=== PATIENT | female | born 1980 | race Two or more races ===

== ENCOUNTER 2024-08-09 23:33 | Emergency (ER) | payer MEDICAID, OTHER ==
[~2024-08-09] VITALS: Ht 170.2 cm; Wt 135.9 kg
[2024-08-09 23:57] LABS: Basophils # (auto) 0 10 ^3/uL (0-0.2); Eosinophils # (auto) 0 10 ^3/uL (0-0.8); Monocytes # (auto) 0.5 10 ^3/uL (0-1.3); Neutrophils # (auto) 6.3 10 ^3/uL (1.6-8.6); White Blood Cell 8.5 10^3/uL (4.4-10.8)
[2024-08-09 23:59] LABS: Basophils % (auto) 0.4 % (0.0-2.0); Eosinophils % (auto) 0.5 % (0.0-7.0); Hematocrit 24.3 % (36.0-46.0); Hemoglobin 7.4 g/dL (12.2-16.2); Lymphocytes # (auto) 1.7 10 ^3/uL (0.4-5.4); Lymphocytes % (auto) 19.7 % (10.0-50.0); Mean Corpuscular Hemoglobin 24.5 pg (28.0-32.0); Mean Corpuscular Hgb Conc. 30.3 g/dL (32.0-36.0); Mean Corpuscular Volume 80.7 fL (80.0-100.0); Monocytes % (auto) 5.7 % (0.0-12.0); Neutrophils % (auto) 73.7 % (37.0-80.0); Platelet Count (auto) 459 10^3/uL (140-450); Red Blood Cells 3.01 10^6/uL (4.0-5.20); Red Cell Distribution Width 24.4 % (11.8-14.3)
[2024-08-10 00:13] LABS: Alanine Aminotransferase 14 U/L (7-40); Albumin 4.2 g/dL (3.2-4.8); Alkaline Phosphatase 82 U/L (46-116); Anion Gap 9 (5-15); BUN/Creatinine Ratio 17.8 (10.0-20.0); Blood Urea Nitrogen 16 mg/dL (9-23); Carbon Dioxide 23 mmol/L (20-31); Potassium 3.8 mmol/L (3.5-5.1); Sodium 141 mmol/L (136-145); Total Protein 6.2 g/dL (5.7-8.2)
[2024-08-10 00:19] LABS: Aspartate Aminotransferase 9 U/L (13-40); Bilirubin, Total 0.2 mg/dL (0.2-1.0); Calcium 8.6 mg/dL (8.7-10.4); Chloride 109 mmol/L (98-107); Glucose 133 mg/dL (74-106)
[2024-08-10 01:00] VITALS: PULSE 73; RESP 14; O2SAT 0
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
[2024-08-10 02:50] VITALS: BP 122/60; PULSE 80; RESP 17; TEMP 98.2
[2024-08-10 03:00] VITALS: BP 110/57; PULSE 70; RESP 17; TEMP 98.1
[2024-08-10 03:15] VITALS: BP 122/59; PULSE 72; RESP 17; TEMP 98.2
[2024-08-10 05:15] VITALS: BP 122/63; PULSE 78; RESP 15; TEMP 98.2
[2024-08-10 05:30] VITALS: BP 118/56; PULSE 81; RESP 17; TEMP 98.1; O2SAT 98
== END 2024-08-10 05:48 | disposition home or self-care (01) ==
LOC: ER 23:33
DX: D50.0 Iron deficiency anemia secondary to blood loss (chronic) (principal); N94.6 Dysmenorrhea, unspecified; Z88.0 Allergy status to penicillin
CPT/HCPCS: 36415; 36430; 80053; 85025; 86850; 86900; 86901; 86920; 99285; P9016